=== PATIENT | female | born 1945 | race American Indian/Alaskan Native ===

== ENCOUNTER 2021-10-26 11:52 | Emergency (ER) | payer MEDICARE ==
--- NOTE | 2021-10-26 12:54 | Emergency Department Report ---
Stated Complaint: PASSED OUT - HPI History of Present Illness: 76 Y F brought by by daughter falling twice today with no head injury reported. patient has hx of dementia. No other acute symptoms reported. - ROS Review of Systems: fall today - unable to report if she is in pain. MSE screening note: Focused history and physical exam performed. Due to findings the following was ordered: orders placed, pending room assignment for further eval. patient stable NAD ED Disposition for MSE Condition: Stable
--- NOTE | 2021-10-26 13:21 | XRay Report ---
BILATERAL HIPS WITH PELVIS 3 VIEWS INDICATION: fall twice today. COMPARISON: None. IMPRESSION: No acute osseous or soft tissue abnormality. No significant DJD. Signer Name: Gil Meehan Jr, MD Signed: 10/26/2021 1:17 PM Workstation Name: [id number]
[2021-10-26 14:08] LABS: Basophils % (Auto) 0.8 % (0.0-1.8); Eosinophils # (Auto) 0.3 K/mm3 (0.0-0.4); Eosinophils % (Auto) 4.5 % (0.0-4.3); Hematocrit 23.3 % (30.3-42.9); Hemoglobin 7.4 gm/dl (10.1-14.3); Lymphocytes # (Auto) 1.3 K/mm3 (1.2-5.4); Lymphocytes % (Auto) 19.6 % (13.4-35.0); Mean Corpuscular HGB Conc 32 % (30-34); Mean Corpuscular Volume 79 fl (79-97); Monocytes # (Auto) 0.7 K/mm3 (0.0-0.8); Monocytes % (Auto) 10.7 % (0.0-7.3); Platelet Count 271 K/mm3 (140-440); Red Blood Count 2.96 M/mm3 (3.65-5.03); Red Cell Distribution Width 18.7 % (13.2-15.2)
[2021-10-26 14:28] LABS: Alanine Aminotransferase 16 units/L (7-56); Albumin 3.4 g/dL (3.9-5); BUN/Creatinine Ratio 32; Blood Urea Nitrogen 29 mg/dL (7-17); Calcium 9.1 mg/dL (8.4-10.2); Hemolysis Index 0
[2021-10-27 04:08] VITALS: BP 116/56
--- NOTE | 2021-10-27 04:31 | Emergency Department Report ---
ED General Adult HPI - General Chief complaint: Fall Stated complaint: PASSED OUT Time Seen by Provider: 10/27/21 04:16 Source: patient Mode of arrival: Ambulatory Limitations: No Limitations - History of Present Illness Initial comments: 76 yo F with h/o dementia brought in by daughter with fall associated with hip pain that started couple of days ago. According to patient daughter she has been picking on her middle finger as well that is swollen. No fever or chills reported. No other modifying or associated factors reported. Severity scale (0 -10): 0 - Related Data Home Medications Medication Instructions Recorded Confirmed Last Taken Ezetimibe [Zetia] 10 mg PO DAILY 12/13/20 05/01/21 Unknown Lisinopril [Zestril] 5 mg PO INTRAOP 12/13/20 05/01/21 Unknown Previous Rx's Medication Instructions Recorded Last Taken Type Mirtazapine [Remeron 15mg TAB] 7.5 mg PO QHS #20 tablet 12/15/20 Unknown Rx QUEtiapine [SEROquel] 12.5 mg PO QHS #30 tablet 12/15/20 Unknown Rx SILVER sulfADIAZINE 50 GRAM 5 applic TP BID #1 tube 12/15/20 Unknown Rx [Thermazene 50 Gram] Sertraline [Zoloft] 25 mg PO QDAY #30 tablet 12/15/20 Unknown Rx cilostazoL [Pletal] 100 mg PO BID #60 tablet 12/15/20 Unknown Rx Pantoprazole [Protonix TAB] 40 mg PO QDAY #30 tablet 05/03/21 Unknown Rx cephALEXin [Keflex] 500 mg PO Q12HR 7 Days #14 cap NS 10/27/21 Unknown Rx Allergies Allergy/AdvReac Type Severity Reaction Status Date / Time codeine Allergy Unknown Verified 12/13/20 15:33 ED Review of Systems ROS: Stated complaint: PASSED OUT Other details as noted in HPI Comment: All other systems reviewed and negative Musculoskeletal: arthralgia, other (hip pain ) ED Past Medical Hx - Past Medical History Hx Hypertension: Yes Hx Heart Attack/AMI: No Hx Diabetes: No Hx Liver Disease: No Hx Sickle Cell Disease: No Hx Seizures: No Hx Asthma: No Hx COPD: No 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 - Social History Smoking Status: Never Smoker - Medications Home Medications: Home Medications Medication Instructions Recorded Confirmed Last Taken Type Ezetimibe [Zetia] 10 mg PO DAILY 12/13/20 05/01/21 Unknown History Lisinopril [Zestril] 5 mg PO INTRAOP 12/13/20 05/01/21 Unknown History Mirtazapine [Remeron 15mg TAB] 7.5 mg PO QHS #20 tablet 12/15/20 05/01/21 Unknown Rx QUEtiapine [SEROquel] 12.5 mg PO QHS #30 tablet 12/15/20 05/01/21 Unknown Rx SILVER sulfADIAZINE 50 GRAM 5 applic TP BID #1 tube 12/15/20 05/01/21 Unknown Rx [Thermazene 50 Gram] Sertraline [Zoloft] 25 mg PO QDAY #30 tablet 12/15/20 05/01/21 Unknown Rx cilostazoL [Pletal] 100 mg PO BID #60 tablet 12/15/20 05/01/21 Unknown Rx Pantoprazole [Protonix TAB] 40 mg PO QDAY #30 tablet 05/03/21 Unknown Rx cephALEXin [Keflex] 500 mg PO Q12HR 7 Days #14 cap NS 10/27/21 Unknown Rx ED Physical Exam - General Limitations: No Limitations General appearance: alert, in no apparent distress - Head Head exam: Present: atraumatic, normal inspection - ENT ENT exam: Present: mucous membranes dry - Neck Neck exam: Present: normal inspection. Absent: tenderness - Respiratory Respiratory exam: Present: normal lung sounds bilaterally. Absent: respiratory distress, accessory muscle use - Cardiovascular Cardiovascular Exam: Present: regular rate, normal rhythm - GI/Abdominal GI/Abdominal exam: Present: soft, normal bowel sounds. Absent: distended, tenderness - Extremities Exam Extremities exam: Present: normal capillary refill. Absent: tenderness, pedal edema - Back Exam Back exam: Absent: tenderness - Neurological Exam Neurological exam: Present: alert - Psychiatric Psychiatric exam: Present: normal affect - Skin Skin exam: Present: warm, normal color ED Course Vital Signs 10/26/21 10/27/21 10/27/21 12:49 04:06 04:08 Temperature 98.4 F Pulse Rate 73 78 Respiratory 16 18 Rate Blood Pressure 111/55 116/56 [Right] O2 Sat by Pulse 99 100 96 Oximetry ED Medical Decision Making - Lab Data Result diagrams: 10/26/21 13:16 10/26/21 13:16 - Radiology Data BILATERAL HIPS WITH PELVIS 3 VIEWS INDICATION: fall twice today. COMPARISON: None. IMPRESSION: No acute osseous or soft tissue abnormality. No significant DJD. - Medical Decision Making here with fall associated with hip pain -- will go ahead and get bilateral hip xray to rule out fx or dislocation-- XRAY noted with no acute findings also noted with bilateral swollen middle fingers -- will d/c home on keflex for the next 7 days with close follow with PCP Critical care attestation.: If time is entered above; I have spent that time in minutes in the direct care of this critically ill patient, excluding procedure time. ED Disposition Clinical Impression: Cellulitis of finger of left hand, Cellulitis of finger of right hand, Hip pain, bilateral Dementia Qualifiers: Dementia type: unspecified type Dementia behavioral disturbance: without behavioral disturbance Qualified Code(s): F03.90 - Unspecified dementia without behavioral disturbance Fall Qualifiers: Encounter type: initial encounter Qualified Code(s): W19.XXXA - Unspecified fall, initial encounter Disposition: HOME / SELF CARE / HOMELESS Is pt being admited?: No Does the pt Need Aspirin: No Condition: Stable Instructions: How to Use Cold Therapy, [id number], Cellulitis, Adult, Easy-t o-Read, Joint Pain, [id number] Additional Instructions: Please give patient antibiotics and completed as prescribed to continue to help finger infection Call and have patient follow-up with her primary doctor in the next 3 to 5 days for progress Please do not hesitate to call or bring patient back to the emergency if symptoms worsen Prescriptions: cephALEXin [Keflex] 500 mg PO Q12HR 7 Days #14 cap NS Referrals: [facility] [Referring] - 3-5 Days Time of Disposition: 04:34
== END 2021-10-27 04:59 | disposition home or self-care (01) ==
LOC: ED 11:52
DX: L03.012 Cellulitis of left finger (principal); L03.011 Cellulitis of right finger; M25.551 Pain in right hip; M25.552 Pain in left hip; L30.9 Dermatitis, unspecified; I10 Essential (primary) hypertension; Z88.6 Allergy status to analgesic agent
CPT/HCPCS: 36415; 73521; 80053; 85025; 99283

== ENCOUNTER 2021-11-05 09:25 | Emergency (ER) | payer MEDICARE ==
--- NOTE | 2021-11-05 10:22 | Event Note ---
ED Screening Note Date of service: 11/05/21 Time: 10:18 ED Screening Note: This initial assessment/diagnostic orders/clinical plan/treatment(s) is/are subject to change based on patients health status, clinical progression and re- assessment by fellow clinical providers in the ED. Further treatment and workup at subsequent clinical providers discretion. Patient/guardian urged not to elope from the ED as their condition may be serious if not clinically assessed and managed. Elderly patient with right long finger wound - necrotic distal tip - here last week - given keflex. [place] given clindamycin. Moving here and has not established with PMD/Wound care here. Initial orders include: My Active Orders 11/05/21 10:17 Basic Metabolic Panel Stat Complete Blood Count Auto Diff Stat Lactic Acid Stat
[2021-11-05 11:35] LABS: BUN/Creatinine Ratio 29; Blood Urea Nitrogen 26 mg/dL (7-17); Calcium 9.3 mg/dL (8.4-10.2); Hemolysis Index 7
[2021-11-05 11:46] LABS: Basophils # (Auto) 0.1 K/mm3 (0.0-0.1); Basophils % (Auto) 0.8 % (0.0-1.8); Eosinophils # (Auto) 0.2 K/mm3 (0.0-0.4); Eosinophils % (Auto) 2.5 % (0.0-4.3); Hematocrit 25.3 % (30.3-42.9); Lymphocytes # (Auto) 1.2 K/mm3 (1.2-5.4); Lymphocytes % (Auto) 18.3 % (13.4-35.0); Mean Corpuscular HGB Conc 32 % (30-34); Mean Corpuscular Volume 79 fl (79-97); Monocytes # (Auto) 0.8 K/mm3 (0.0-0.8); Monocytes % (Auto) 11.3 % (0.0-7.3); Platelet Count 303 K/mm3 (140-440); Red Blood Count 3.22 M/mm3 (3.65-5.03); Red Cell Distribution Width 18.3 % (13.2-15.2)
[2021-11-05] MEDS ORDERED: SULFAMETHOXAZOLE/TRIMETHOPRIM 800/160MG DS TAB PO ONE (13:12)
[2021-11-05] MEDS ORDERED: metroNIDAZOLE 500 MG TAB PO ONE (13:12)
[2021-11-05] MEDS ORDERED: predniSONE 20 MG TAB PO ONE (13:13)
--- NOTE | 2021-11-05 14:37 | XRay Report ---
RIGHT HAND 3 VIEW(S) INDICATION / CLINICAL INFORMATION: wound, r/o osteo COMPARISON: 12/13/2020 FINDINGS: BONES / JOINT(S): No fracture. There is a soft tissue defect over the dorsal aspect of the distal pha lanx of the third digit with suggestion of exposed bone. If so this is consistent with osteomyelitis. No significant arthritis. There is amputation changes to the second and fourth digits. SOFT TISSUES: There is marked soft tissue swelling of the third digit. ADDITIONAL FINDINGS: None. Signer Name: Craig Hardin DO Signed: 11/05/2021 2:33 PM Workstation Name: [id number]
--- NOTE | 2021-11-05 16:34 | Emergency Department Report ---
Blank Doc - Documentation Documentation: Assisted with possible transfer the patient. Contacted [facility] to no avail. Discussed with the patient's daughter that we could transfer to [place] to [facility] for further evaluation. The daughter states that the osteomyelitis is chronic in nature and she would just follow-up as outpatient. Transfer was recommended and offered but politely declined
--- NOTE | 2021-11-05 16:40 | Emergency Department Report ---
- General Chief Complaint: Extremity Problem,Nontraumatic Stated Complaint: FINGER INFECTED Time Seen by Provider: 11/05/21 13:12 Source: patient Mode of arrival: Wheelchair Limitations: No Limitations - History of Present Illness Initial Comments: 76 yo black female with a pmh of HTN, Alzhimer's, and Raynaud Syndrome presents to ed with her daughter for evaluation of right middle finger wound. Daughter states that patient has had wound for several months, was seen a wound care doctor, but has not been able to follow up in the past few weeks since being displaced here from [place]. Daughter states that patient has just completed coarse of Clindamycin and Keflex but is still having needle-like pain and swelling to finger. Daughter denies fever. -: Gradual, month(s) Extremity Location: Right: Hand Place: home Context: other (chronic wound) Associated Symptoms: pain Treatments Prior to Arrival: other (antibiotics) - Related Data Home Medications Medication Instructions Recorded Confirmed Last Taken Ezetimibe [Zetia] 10 mg PO DAILY 12/13/20 05/01/21 Unknown Lisinopril [Zestril] 5 mg PO INTRAOP 12/13/20 05/01/21 Unknown Previous Rx's Medication Instructions Recorded Last Taken Type Mirtazapine [Remeron 15mg TAB] 7.5 mg PO QHS #20 tablet 12/15/20 Unknown Rx QUEtiapine [SEROquel] 12.5 mg PO QHS #30 tablet 12/15/20 Unknown Rx SILVER sulfADIAZINE 50 GRAM 5 applic TP BID #1 tube 12/15/20 Unknown Rx [Thermazene 50 Gram] Sertraline [Zoloft] 25 mg PO QDAY #30 tablet 12/15/20 Unknown Rx cilostazoL [Pletal] 100 mg PO BID #60 tablet 12/15/20 Unknown Rx Pantoprazole [Protonix TAB] 40 mg PO QDAY #30 tablet 05/03/21 Unknown Rx cephALEXin [Keflex] 500 mg PO Q12HR 7 Days #14 cap NS 10/27/21 Unknown Rx Clindamycin [Clindamycin CAP] 150 mg PO TID #63 capsule 11/05/21 Unknown Rx Allergies Allergy/AdvReac Type Severity Reaction Status Date / Time codeine Allergy Unknown Verified 11/05/21 10:16 ED Review of Systems ROS: Stated complaint: FINGER INFECTED Other details as noted in HPI Comment: All other systems reviewed and negative Constitutional: denies: chills, fever Respiratory: denies: shortness of breath Cardiovascular: denies: chest pain, palpitations Gastrointestinal: denies: abdominal pain, nausea, vomiting Musculoskeletal: denies: back pain Neurological: denies: headache, weakness ED Past Medical Hx - Past Medical History Hx Hypertension: Yes Hx Heart Attack/AMI: No Hx Diabetes: No Hx Liver Disease: No Hx Sickle Cell Disease: No Hx Seizures: No Hx Asthma: No Hx COPD: No 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 - Social History Smoking Status: Never Smoker - Medications Home Medications: Home Medications Medication Instructions Recorded Confirmed Last Taken Type Ezetimibe [Zetia] 10 mg PO DAILY 12/13/20 05/01/21 Unknown History Lisinopril [Zestril] 5 mg PO INTRAOP 12/13/20 05/01/21 Unknown History Mirtazapine [Remeron 15mg TAB] 7.5 mg PO QHS #20 tablet 12/15/20 05/01/21 Unknown Rx QUEtiapine [SEROquel] 12.5 mg PO QHS #30 tablet 12/15/20 05/01/21 Unknown Rx SILVER sulfADIAZINE 50 GRAM 5 applic TP BID #1 tube 12/15/20 05/01/21 Unknown Rx [Thermazene 50 Gram] Sertraline [Zoloft] 25 mg PO QDAY #30 tablet 12/15/20 05/01/21 Unknown Rx cilostazoL [Pletal] 100 mg PO BID #60 tablet 12/15/20 05/01/21 Unknown Rx Pantoprazole [Protonix TAB] 40 mg PO QDAY #30 tablet 05/03/21 Unknown Rx cephALEXin [Keflex] 500 mg PO Q12HR 7 Days #14 cap NS 10/27/21 Unknown Rx Clindamycin [Clindamycin CAP] 150 mg PO TID #63 capsule 11/05/21 Unknown Rx ED Physical Exam - General Limitations: No Limitations General appearance: alert, in no apparent distress - Head Head exam: Present: atraumatic, normocephalic - Eye Eye exam: Present: normal appearance. Absent: conjunctival injection, periorbital swelling, periorbital tenderness - Neck Neck exam: Present: normal inspection. Absent: tenderness, lymphadenopathy - Respiratory Respiratory exam: Present: normal lung sounds bilaterally. Absent: respiratory distress, wheezes, rales, chest wall tenderness - Cardiovascular Cardiovascular Exam: Present: regular rate, normal heart sounds - GI/Abdominal GI/Abdominal exam: Present: soft, normal bowel sounds. Absent: distended, tenderness - Expanded Upper Extremity Exam Right Hand Wrist exam: Present: tenderness, swelling Hand L/R Back: 1 - tissue of area most raj with what appears to be bone at the tip. edema noted, no purulent drainage noted. Vascular: Present: normal capillary refill, radial pulse. Absent: vascular compromise, Pallo - Back Exam Back exam: Present: normal inspection - Neurological Exam Neurological exam: Present: alert, oriented X3 - Psychiatric Psychiatric exam: Present: normal affect, normal mood - Skin Skin exam: Present: warm, dry, normal color ED Course Vital Signs 11/05/21 10:10 Temperature 98.6 F Pulse Rate 79 Respiratory 18 Rate Blood Pressure 112/61 [Left] O2 Sat by Pulse 100 Oximetry ED Medical Decision Making - Lab Data Result diagrams: 11/05/21 10:39 11/05/21 10:39 - Radiology Data Radiology results: report reviewed, image reviewed Right hand xray: FINDINGS: BONES / JOINT(S): No fracture. There is a soft tissue defect over the dorsal aspect of the distal phalanx of the third digit with suggestion of exposed bone. If so this is consistent with osteomyelitis. No significant arthritis. There is amputation changes to the second and fourth digits. SOFT TISSUES: There is marked soft tissue swelling of the third digit. ADDITIONAL FINDINGS: None. - Medical Decision Making 76 yo black female with a pmh of HTN, Alzhimer's, and Raynaud Syndrome presents to ed with her daughter for evaluation of right middle finger wound. Daughter states that patient has had wound for several months, was seen a wound care doctor, but has not been able to follow up in the past few weeks since being displaced here from [place]. Daughter states that patient has just completed coarse of Clindamycin and Keflex but is still having needle-like pain and swelling to finger. Daughter denies fever. Xray with possible osteomyelitis. Case discussed with Dr. Thompson, and he took over patient for further evaluation and management. Patient and daughter updated. Critical care attestation.: If time is entered above; I have spent that time in minutes in the direct care of this critically ill patient, excluding procedure time. ED Disposition Clinical Impression: Chronic osteomyelitis involving hand, Infection of phalanx of digit of hand Disposition: HOME / SELF CARE / HOMELESS Is pt being admited?: No Condition: Stable Instructions: Osteomyelitis, Adult Additional Instructions: return if worse Prescriptions: Clindamycin [Clindamycin CAP] 150 mg PO TID #63 capsule Referrals: [facility] [Provider Group] - 3-5 Days
[2021-11-05 17:01] VITALS: BP 112/68
== END 2021-11-05 17:01 | disposition home or self-care (01) ==
LOC: ED 09:25
DX: M86.641 Other chronic osteomyelitis, right hand (principal); M01.X49 Direct infection of unspecified hand in infectious and parasitic diseases classified elsewhere; I10 Essential (primary) hypertension; Z88.8 Allergy status to other drugs, medicaments and biological substances; Z79.899 Other long term (current) drug therapy; Z88.5 Allergy status to narcotic agent
CPT/HCPCS: 36415; 80048; 82140; 85025; 99283